=== PATIENT | female | born 1995 | race Caucasian/White ===

== ENCOUNTER 2019-08-12 11:36 | Inpatient (IN) | payer OTHER ==
[~2019-08-12] VITALS: Ht 152.4 cm; Wt 43.1 kg
[2019-08-12 14:44] LABS: CLARITY URINE CLEAR (CLEAR); COLOR URINE YELLOW (YELLOW); KETONES URINE NEGATIVE (NEGATIVE); LEUKOCYTE ESTERASE URINE TRACE (NEGATIVE); NITRITE URINE NEGATIVE (NEGATIVE); OCCULT BLOOD URINE TRACE (NEGATIVE); PH URINE 5.5 (4.5-8.0); PROTEIN URINE NEGATIVE (NEGATIVE); SPECIFIC GRAVITY URINE 1.005 (1.005-1.030); UROBILINOGEN URINE 0.2 E.U./dL (0.2-1.0)
[2019-08-12] MEDS ORDERED: SODIUM CHLORIDE 0.9% 1000ML BAG (SEPSIS BOLUS) IV ONE (14:45)
[2019-08-12] MEDS ORDERED: ACETAMINOPHEN 325MG TABLET PO ONE (15:00)
[2019-08-12] MEDS ORDERED: LEVOFLOXACIN 500MG PREMIX 100 ML IV ONE (15:00)
[2019-08-12 15:11] LABS: BASOPHILS % 0.4 % (0.0-2.0); EOSINOPHILS % 0.4 % (0.0-5.0); HEMATOCRIT. 43.1 % (36.0-48.0); HEMOGLOBIN. 14.7 g/dL (12.0-16.0); LYMPHOCYTES % 16.5 % (20.0-50.0); MEAN PLATELET VOLUME 8.1 fl (7.4-10.4); MONOCYTES % 8.4 % (2.0-8.0); NEUTROPHILS % 74.3 % (40.0-76.0); PLATELET 315 x1000/uL (130-400); RED BLOOD CELL COUNT 5.25 mill/uL (4.2-5.4); RED CELL DISTRIBUTION WIDTH 13.9 % (11.6-14.6)
[2019-08-12 15:16] LABS: CHLORIDE 99 mEq/L (98-107)
[2019-08-12 15:18] LABS: PROTHROMBIN TIME 10.2 sec (9.6-11.0)
[2019-08-12 15:24] LABS: HCG SCREEN NEGATIVE
[2019-08-12] MEDS ORDERED: POTASSIUM CHLORIDE 20MEQ TABLET SR PO ONE (16:00)
[2019-08-12 22:22] VITALS: BP 134/93
[2019-08-12] MEDS ORDERED: IPRATROPIUM/ALBUTEROL 0.5-3(2.5)MG/3ML NEB NEB PRN (23:15)
[2019-08-12] MEDS ORDERED: ONDANSETRON HCL 4MG/2ML INJ IV PRN (23:15)
[2019-08-12] MEDS ORDERED: POTASSIUM CHLORIDE 20MEQ TABLET SR PO SCH (23:15)
[2019-08-12] MEDS ORDERED: DIPHENHYDRAMINE 50MG/ML VIAL IV PRN (23:15)
[2019-08-12] MEDS ORDERED: ACETAMINOPHEN 325MG TABLET PO PRN (23:15)
[2019-08-12] MEDS: SODIUM CHLORIDE 0.9% INJ 3ML FLUSH IVF SCH (23:46)
[2019-08-12] MEDS: FAMOTIDINE 20MG TABLET PO SCH (23:46)
[2019-08-12] MEDS: GUAIFENESIN 200MG/10ML SUGAR FREE UDC PO PRN (23:46)
[2019-08-13] VITALS: BP 109/74
[2019-08-13 04:00] VITALS: BP 101/63
[2019-08-13] MEDS: SODIUM CHLORIDE 0.9% INJ 3ML FLUSH IVF SCH ×2 (05:15→14:16)
[2019-08-13] MEDS: GUAIFENESIN 200MG/10ML SUGAR FREE UDC PO PRN (05:58)
[2019-08-13 07:21] LABS: BASOPHILS % 0.5 % (0.0-2.0); EOSINOPHILS % 0.9 % (0.0-5.0); HEMATOCRIT. 38.9 % (36.0-48.0); HEMOGLOBIN. 13.1 g/dL (12.0-16.0); LYMPHOCYTES % 25.6 % (20.0-50.0); MEAN CORPUSCULAR HEMOGLOBIN 27.3 pg (28.0-32.0); MEAN CORPUSCULAR VOLUME 81.3 fL (81.0-99.0); MEAN PLATELET VOLUME 8.5 fl (7.4-10.4); MONOCYTES % 11.7 % (2.0-8.0); NEUTROPHILS % 61.3 % (40.0-76.0); PLATELET 307 x1000/uL (130-400); RED BLOOD CELL COUNT 4.78 mill/uL (4.2-5.4); RED CELL DISTRIBUTION WIDTH 13.4 % (11.6-14.6)
[2019-08-13 07:34] LABS: CHLORIDE 106 mEq/L (98-107)
[2019-08-13 07:42] LABS: PHOSPHORUS 2.4 mg/dL (2.5-4.9)
[2019-08-13 07:52] VITALS: BP 103/66
[2019-08-13] MEDS: GUAIFENESIN 600MG ER TABLET PO SCH ×2 (08:23→21:12)
[2019-08-13] MEDS: IPRATROPIUM/ALBUTEROL 0.5-3(2.5)MG/3ML NEB HHN SCH ×2 (08:24→21:41)
[2019-08-13 12:00] VITALS: BP 107/72
[2019-08-13] MEDS: LEVOFLOXACIN 500MG PREMIX 100 ML IV SCH (14:15)
[2019-08-13 16:00] VITALS: BP 111/70
[2019-08-13 20:00] VITALS: BP 109/66
[2019-08-13] MEDS: FAMOTIDINE 20MG TABLET PO SCH (21:12)
[2019-08-14] VITALS: BP 105/72
[2019-08-14] MEDS: SODIUM CHLORIDE 0.9% INJ 3ML FLUSH IVF SCH ×3 (00:29→15:43)
[2019-08-14] MEDS: GUAIFENESIN 200MG/10ML SUGAR FREE UDC PO PRN (00:29)
[2019-08-14 04:00] VITALS: BP 106/66
[2019-08-14 08:00] VITALS: BP 103/63
[2019-08-14] MEDS: GUAIFENESIN 600MG ER TABLET PO SCH (08:26)
[2019-08-14] MEDS: IPRATROPIUM/ALBUTEROL 0.5-3(2.5)MG/3ML NEB HHN SCH (09:16)
[2019-08-14 12:00] VITALS: BP 107/73
[2019-08-14] MEDS: LEVOFLOXACIN 500MG PREMIX 100 ML IV SCH (15:42)
[2019-08-14 16:50] VITALS: BP 107/73
== END 2019-08-14 17:45 | disposition home or self-care (01) | DRG 871 ==
LOC: ER 11:36 → EDBEDREQ 14:41 → 8WST 15:49 → EDBEDREQ 15:52 → EDBEDREQSVC 15:54 → ENRESERV 17:31
PROVIDERS: ADMIT Internal Medicine; ATTEND Internal Medicine
DX: A41.9 Sepsis, unspecified organism (principal); J18.9 Pneumonia, unspecified organism; E87.6 Hypokalemia
CPT/HCPCS: 36415; 71045; 80048; 81003; 83605; 83735; 83880; 84100; 84145; 84484; 84703; 87070; 87804; 93005; 94640; 96360; 99291; J1956; J2405; J7030; J7040; J7620